=== PATIENT | female | born 1955 | race Two or more races ===

== ENCOUNTER 2022-12-01 18:15 | Emergency (ER) | payer BC, OTHER ==
[~2022-12-01] VITALS: Ht 162.6 cm; Wt 61.3 kg
[2022-12-01 18:29] VITALS: PULSE 118; RESP 16; O2SAT 98
[2022-12-01] MEDS ORDERED: DexAMETHasone SOD PHOS 10MG/1ML VIAL INJ IV ONE (18:30)
[2022-12-01] MEDS ORDERED: FAMOTIDINE (10MG/ML) 2ML VL IV ONE (18:30)
[2022-12-01] MEDS ORDERED: FAMO20TA10 PO (18:44)
[2022-12-01] MEDS ORDERED: PRED20TA2 PO (18:44)
[2022-12-01] MEDS ORDERED: DIPH25CA51 PO (18:44)
[2022-12-01] MEDS ORDERED: EPIN0.1I11 IJ (18:44)
[2022-12-01 18:58] LABS: Basophils # (auto) 0 10 ^3/uL (0-0.2); Eosinophils # (auto) 0 10 ^3/uL (0-0.8); Eosinophils % (auto) 0.7 % (0.0-7.0); Hematocrit 35.3 % (36.0-46.0); Hemoglobin 11.8 g/dL (12.2-16.2); Lymphocytes # (auto) 1.2 10 ^3/uL (0.4-5.4); Lymphocytes % (auto) 23.2 % (10.0-50.0); Mean Corpuscular Hemoglobin 30.6 pg (28.0-32.0); Mean Corpuscular Hgb Conc. 33.4 g/dL (32.0-36.0); Mean Corpuscular Volume 91.8 fL (80.0-100.0); Monocytes # (auto) 0.4 10 ^3/uL (0-1.3); Monocytes % (auto) 8.4 % (0.0-12.0); Neutrophils # (auto) 3.3 10 ^3/uL (1.6-8.6); Neutrophils % (auto) 66.7 % (37.0-80.0); Red Blood Cells 3.85 10^6/uL (4.0-5.20); Red Cell Distribution Width 13.8 % (11.8-14.3)
[2022-12-01 19:15] LABS: Alanine Aminotransferase 10 U/L (7-40); Albumin 4.1 g/dL (3.2-4.8); Alkaline Phosphatase 94 U/L (46-116); Anion Gap 10 (5-15); Aspartate Aminotransferase 18 U/L (13-40); BUN/Creatinine Ratio 15.1 (10.0-20.0); Bilirubin, Total 0.5 mg/dL (0.2-1.0); Blood Urea Nitrogen 14 mg/dL (9-23); Carbon Dioxide 23 mmol/L (20-30); Chloride 106 mmol/L (98-107); Glucose 219 mg/dL (74-106); Potassium 3.1 mmol/L (3.5-5.1); Sodium 139 mmol/L (136-145); Total Protein 6.1 g/dL (5.7-8.2)
[2022-12-01 19:35] VITALS: PULSE 99; RESP 14; O2SAT 100
[2022-12-01] MEDS ORDERED: POTASSIUM EFFERVESENT TAB 25 MEQ PO ONE (20:45)
[2022-12-01] MEDS ORDERED: POTA10TA51 PO (21:35)
[2022-12-01 21:42] VITALS: BP 111/55; PULSE 80; RESP 9; TEMP 97.7; O2SAT 95
== END 2022-12-01 21:45 | disposition home or self-care (01) ==
LOC: ER 18:15 → EDBD 18:15 → ER 21:45
DX: T78.2XXA Anaphylactic shock, unspecified, initial encounter (principal); E87.6 Hypokalemia; Z98.890 Other specified postprocedural states; Z79.899 Other long term (current) drug therapy; Y92.89 Other specified places as the place of occurrence of the external cause
CPT/HCPCS: 36415; 71045; 80053; 83735; 83880; 84484; 85025; 93005; 96374; 96375; 99285; J1100; J3490